=== PATIENT | male | born 1980 | race Caucasian/White ===

== ENCOUNTER 2016-09-01 19:42 | Inpatient (IN) | payer OTHER ==
[~2016-09-01] VITALS: Ht 170.2 cm; Wt 69.9 kg
[~2016-09-01 19:42] MED LIST: MYCO200S PO; PRED10PA PO; PROG1CAP PO; TRAM50 PO
[2016-09-01 19:51] VITALS: BP 113/79; PULSE 85; RESP 18; TEMP 98.7; O2SAT 100
[2016-09-01] MEDS ORDERED: SODIUM CHLOR 0.9% 1000 ML INJ 1,000 ML IV SCH (20:22)
--- NOTE | 2016-09-01 20:28 | PD ---
HPI Chief Complaint: GI Complaint Time Seen by Provider: 20:08 Travel History International Travel<30 days: No Contact w/Intl Traveler<30days: No Traveled to known affect area: No History of Present Illness HPI This 36-year-old male is complaining of dark stools. He has a history of ulcers. He does not drink. He says that he's been having dark stools for the last day or so. He's been feeling lightheaded he does not take anti- inflammatory medication. He does have a history of renal transplant 2. His most recent transplant was a few years ago and he says is working well. He is on antirejection medicines. He has a history of hernia repair and as noted that his hernia has recurred in the left inguinal area. He vomited once today. He says the vomit was dark PFSH Past Medical History Depression: Yes Diabetes: No Diminished Hearing: No Gout: Yes (BILATERAL KNEES) Herniated Disk: Yes (MULTIPLE) Hypertension: Yes Psychiatric: Yes (DEPRESSION ANXIETY) Renal Failure: Yes Past Surgical History Genitourinary Surgery: Yes ( kidney transplant) Social History Alcohol Use: No Tobacco Use: No Substance Use: No Allergies-Medications (Allergen,Severity, Reaction): Coded Allergies: No Known Allergies (Unverified , 09/01/16) Reported Meds & Prescriptions Reported Meds & Active Scripts Active Reported Metoprolol Tartrate 50 Mg Tab 50 Mg PO DAILY Prograf (Tacrolimus) 1 Mg Cap 1 Mg PO BID Prednisone 10 Mg Tab 10 Mg PO DAILY Cellcept (Mycophenolate Mofetil) 250 Mg Cap 250 Mg PO BID Review of Systems General / Constitutional: No: Fever, Chills Eyes: No: Diploplia, Blurred Vision HENT: No: Headaches, Vertigo Cardiovascular: No: Chest Pain or Discomfort, Palpitations Respiratory: No: Cough, Shortness of Breath Gastrointestinal: Positive: Hematemesis, Hematochezia Genitourinary: No: Frequency, Dysuria Musculoskeletal: No: Myalgias, Arthralgias Skin: No Rash, No Itching Neurologic: Positive: Weakness Psychiatric: Positive: Depression, No: Anxiety Hematologic/Lymphatic: No: Easy Bruising Physical Exam Narrative GENERAL well-developed male SKIN: Focused skin assessment warm/dry. HEAD: Atraumatic. Normocephalic. EYES: Pupils equal and round. No scleral icterus. No injection or drainage. ENT: No nasal bleeding or discharge. Mucous membranes pink and moist. NECK: Trachea midline. No JVD. CARDIOVASCULAR: Regular rate and rhythm. No murmur appreciated. RESPIRATORY: No accessory muscle use. Clear to auscultation. Breath sounds equal bilaterally. GASTROINTESTINAL: Abdomen soft, non-tender, nondistended. Hepatic and splenic margins not palpable. Multiple scars present. There are bilateral inguinal defects on rectal exam there are no masses. Stool is black and guaiac positive MUSCULOSKELETAL: No obvious deformities. No clubbing. No cyanosis. No edema. NEUROLOGICAL: Awake and alert. No obvious cranial nerve deficits. Motor grossly within normal limits. Normal speech. PSYCHIATRIC: Appropriate mood and affect; insight and judgment normal. Data Data Last Documented VS Vital Signs Date Time Temp Pulse Resp B/P Pulse Ox O2 Delivery O2 Flow Rate FiO2 09/01/16 21:20 82 16 113/67 98 Room Air 09/01/16 19:51 98.7 Orders Basic Metabolic Panel (Bmp) (09/01/16 20:22) Comprehensive Metabolic Panel (09/01/16 20:22) Prothrombin Time / Inr (Pt) (09/01/16 20:22) Act Partial Throm Time (Ptt) (09/01/16 20:22) Urinalysis - C+S If Indicated (09/01/16 20:22) Type And Screen (09/01/16 20:22) Ecg Monitoring (09/01/16 20:22) Iv Access Insert/Monitor (09/01/16 20:22) Oximetry (09/01/16 20:22) Sodium Chlor 0.9% 1000 Ml Inj (Ns 1000 M (09/01/16 20:22) Sodium Chloride 0.9% Flush (Ns Flush) (09/01/16 20:30) Pantoprazole Inj (Protonix Inj) (09/01/16 20:30) Pantoprazole Inj (Protonix Inj) (09/01/16 20:30) Complete Blood Count With Diff (09/01/16 20:51) Admit Order (Ed Use Only) (09/01/16 21:29) Labs Laboratory Tests Test 09/01/16 20:40 White Blood Count 9.9 TH/MM3 Red Blood Count 3.54 MIL/MM3 Hemoglobin 9.9 GM/DL Hematocrit 29.2 % Mean Corpuscular Volume 82.5 FL Mean Corpuscular Hemoglobin 28.0 PG Mean Corpuscular Hemoglobin 34.0 % Concent Red Cell Distribution Width 13.7 % Platelet Count 270 TH/MM3 Mean Platelet Volume 7.9 FL Neutrophils (%) (Auto) 64.0 % Lymphocytes (%) (Auto) 23.1 % Monocytes (%) (Auto) 4.8 % Eosinophils (%) (Auto) 7.3 % Basophils (%) (Auto) 0.8 % Neutrophils # (Auto) 6.3 TH/MM3 Lymphocytes # (Auto) 2.3 TH/MM3 Monocytes # (Auto) 0.5 TH/MM3 Eosinophils # (Auto) 0.7 TH/MM3 Basophils # (Auto) 0.1 TH/MM3 CBC Comment DIFF FINAL Differential Comment Prothrombin Time 10.8 SEC Prothromb Time International 1.0 RATIO Ratio Activated Partial 22.4 SEC Thromboplast Time Sodium Level 141 MEQ/L Potassium Level 3.3 MEQ/L Chloride Level 110 MEQ/L Carbon Dioxide Level 22.8 MEQ/L Anion Gap 8 MEQ/L Blood Urea Nitrogen 37 MG/DL Creatinine 1.30 MG/DL Estimat Glomerular Filtration 62 ML/MIN Rate Random Glucose 95 MG/DL Calcium Level 8.9 MG/DL Total Bilirubin 0.5 MG/DL Aspartate Amino Transf 12 U/L (AST/SGOT) Alanine Aminotransferase 14 U/L (ALT/SGPT) Alkaline Phosphatase 64 U/L Total Protein 6.4 GM/DL Albumin 3.5 GM/DL Blood Type O POSITIVE Antibody Screen NEGATIVE Blood Bank Comment [facility] Medical Decision Making Medical Screen Exam Complete: Yes Emergency Medical Condition: Yes Medical Record Reviewed: Yes Differential Diagnosis Differential includes GI bleed, Narrative Course Patient has black stool which is guaiac positive. He did vomit some coffee grounds earlier today. All consistent with an upper GI bleed. He says he does not drink or use anti-inflammatory medication that he does have history of ulcer. I have initiated Protonix Diagnosis Primary Impression: GI bleed Sánchez Arcos MD Sep 01, 2016 20:28
[2016-09-01] MEDS ORDERED: PANTOPRAZOLE INJ 80 MG in SODIUM CHLORIDE 0.9% INJ 35 ML IV ONE (20:30)
[2016-09-01] MEDS ORDERED: SODIUM CHLORIDE 0.9% FLUSH 10 ML FLUSH IVF PRN (20:30)
[2016-09-01 21:12] LABS: CHLORIDE 110 MEQ/L (98-107); POTASSIUM 3.3 MEQ/L (3.5-5.1); SODIUM (NA) 141 MEQ/L (136-145)
[2016-09-01 21:13] LABS: AUTOMATED NEUTROPHIL # 6.3 TH/MM3 (1.8-7.7); BASOPHIL # 0.1 TH/MM3 (0-0.2); BASOPHIL % 0.8 % (0.0-2.0); EOSINOPHIL # 0.7 TH/MM3 (0-0.4); EOSINOPHIL % 7.3 % (0.0-4.0); HEMATOCRIT 29.2 % (39.0-51.0); HEMO FLAGS DIFF FINAL; LYMPH % 23.1 % (9.0-44.0); LYMPHOCYTE # 2.3 TH/MM3 (1.0-4.8); MEAN CELL VOLUME 82.5 FL (80.0-100.0); MONO % 4.8 % (0.0-8.0); PLATELET COUNT 270 TH/MM3 (150-450); RED BLOOD COUNT 3.54 MIL/MM3 (4.50-5.90); RED CELL DISTRIBUTION WIDTH 13.7 % (11.6-17.2); WHITE BLOOD COUNT 9.9 TH/MM3 (4.0-11.0)
[2016-09-01 21:15] LABS: ANION GAP 8 MEQ/L (5-15); BICARBONATE 22.8 MEQ/L (21.0-32.0); BLOOD UREA NITROGEN 37 MG/DL (7-18)
[2016-09-01 21:17] LABS: APTT (PATIENT) 22.4 SEC (24.3-30.1); PROTHROMBIN TIME - PATIENT 10.8 SEC (9.8-11.6)
[2016-09-01 21:18] LABS: ALT (GPT) 14 U/L (12-78); AST (GOT) 12 U/L (15-37)
[2016-09-01 21:19] LABS: GLOMERULAR FILTRATION RATE 62 ML/MIN (>89)
[2016-09-01 21:20] VITALS: BP 113/67; PULSE 82; RESP 16; O2SAT 98
[2016-09-01 21:20] LABS: TOTAL BILIRUBIN ADULT 0.5 MG/DL (0.2-1.0)
[2016-09-01 21:21] LABS: ALKALINE PHOSPHATASE 64 U/L (45-117)
[2016-09-01] MEDS: PANTOPRAZOLE INJ 80 MG in SODIUM CHLORIDE 0.9% INJ 100 ML IV SCH (21:22)
[2016-09-01] MEDS ORDERED: METO50TA PO (21:41)
[2016-09-01] MEDS ORDERED: TACR1 PO (21:41)
[2016-09-01] MEDS ORDERED: MYCO250 PO (21:41)
[2016-09-01] MEDS ORDERED: PRED10 PO (21:41)
[2016-09-01 21:44] LABS: BLOOD, URINE NEG (NEG); GLUCOSE,URINE NEG (NEG); KETONE, URINE NEG (NEG); NITRITE,URINE NEG (NEG); PH, URINE 5.5 (5.0-8.5)
[2016-09-01] MEDS ORDERED: SODIUM CHLORIDE 0.9% FLUSH 10 ML FLUSH IV FLUSH PRN (21:45)
[2016-09-01 21:53] LABS: SQUAMOUS EPITHELIAL CELL URINE 0-5 /hpf (0-5); URINE COLOR YELLOW (YELLW/STRAW); WBC, URINE 0-2 /hpf (0-5)
[2016-09-01 21:54] LABS: COMMENT (UR) CULT NOT INDICATED; CULTURE IF INDICATED CULT NOT INDICATED
[2016-09-01 22:20] VITALS: BP 112/72; PULSE 70; RESP 16; O2SAT 98
[2016-09-01] MEDS: TACROLIMUS 1 MG CAP PO SCH (22:40)
[2016-09-01] MEDS ORDERED: MYCOPHENOLATE MOFETIL 250 MG CAP PO ONE (23:15)
[2016-09-01 23:30] VITALS: BP 118/76; PULSE 85; RESP 20; TEMP 97.9; O2SAT 100
[2016-09-01 23:38] VITALS: BP 106/69
[2016-09-02 00:11] VITALS: PULSE 80
[2016-09-02 02:46] LABS: HEMATOCRIT 24.3 % (39.0-51.0); REVIEW FLAG FINAL
[2016-09-02 04:00] VITALS: BP 105/66; PULSE 81; RESP 20; TEMP 98.1; O2SAT 98
[2016-09-02] MEDS: PANTOPRAZOLE INJ 80 MG in SODIUM CHLORIDE 0.9% INJ 100 ML IV SCH (06:30)
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
[2016-09-02] MEDS ORDERED: PROPOFOL 200 MG/20 ML AMP IV ONE (08:21)
--- NOTE | 2016-09-02 08:28 | GIPROC ---
[facility] [address] [place] [address], [id number] EGD PROCEDURE REPORT EXAM DATE: 09/02/2016 PATIENT NAME: Nathen Cason MR #: [id number] BIRTHDATE: 1980 ATTENDING: Anitra Alvarado MD ORDER #: [id number] DIRECTOR OF STRATEGY & MOBILE: Philip Palm and Angel Figueroa STATUS: inpatient INDICATIONS: The patient is a 36 yr old male here for an EGD due to melena, hematemesis PROCEDURE PERFORMED: EGD w/ biopsy MEDICATIONS: None and Per Anesthesia. TOPICAL ANESTHETIC: none CONSENT: The patient understands the risks and benefits of the procedure and understands that these risks include, but are not limited to: sedation, allergic reaction, infection, perforation and/or bleeding. Alternative means of evaluation and treatment include, among others: physical exam, x-rays, and/or surgical intervention. The patient elects to proceed with this endoscopic procedure. medical equipment was checked for proper function. Hand hygiene and appropriate measures for infection prevention was taken. After the risks, benefits and alternatives of the procedure were thoroughly explained, Informed consent was verified, confirmed and timeout was successfully executed by the treatment team. The patient was anesthetized with topical anesthesia and the [employer] [id number] endoscope was introduced through the mouth and advanced to the second portion of the duodenum. Retroflexed views revealed a hiatal hernia The gastroscope was then slowly withdrawn and removed. Clean base ulcer in antrum-6 mm-no active bleeding-biopsy duodenal bulb ulcer-clean base 6 mm-no active bleeding, narrowing lumen Schatzki's ring-biopsy. ADVERSE EVENTS: There were no complications. IMPRESSIONS: 1. Clean base ulcer in antrum-6 mm-no active bleeding-biopsy duodenal bulb ulcer-clean base 6 mm-no active bleeding, narrowing lumen Schatzki's ring-biopsy 2. Retroflexed views revealed a hiatal hernia RECOMMENDATIONS: 1. Await biopsy results. Biopsy results will not be ready for 7-10 days. If you don't hear from us in two weeks, call our office for biopsy results. 2. Anti-reflux regimen 3. Continue PPI 4. Avoid nsaids ct abdomen/pelvis -no iv contrast -pain in llq/hernia egd 8 weeks PATIENT CONDITION: stable DISPOSITION: Inpatient REPEAT EXAM: EGD pending biopsy results Anitra Alvarado MD eSigned: Anitra Alvarado MD 09/02/2016 8:28 AM cc: PATIENT NAME: Nathen Cason MR#: [id number]
[2016-09-02] MEDS ORDERED: ONDANSETRON HCL 4 MG/2 ML VIAL ONE (08:37)
[2016-09-02 09:00] VITALS: BP 125/77; PULSE 81; RESP 19; TEMP 97.4; O2SAT 100
[2016-09-02] MEDS ORDERED: SODIUM CHLORIDE 0.9% FLUSH 10 ML FLUSH IV FLUSH SCH (09:00)
[2016-09-02] MEDS ORDERED: DIATRIZOATE MEGLUM/DIATRIZOATE SOD 9 ML CUP PO ONE (09:00)
[2016-09-02] MEDS ORDERED: predniSONE 10 MG TAB PO SCH (09:00)
[2016-09-02] MEDS ORDERED: MYCOPHENOLATE MOFETIL 250 MG CAP PO SCH (09:00)
[2016-09-02] MEDS: TACROLIMUS 1 MG CAP PO SCH (09:29)
[2016-09-02 10:13] LABS: HEMATOCRIT 25.4 % (39.0-51.0); REVIEW FLAG FINAL
[2016-09-02 10:27] LABS: POTASSIUM 3.6 MEQ/L (3.5-5.1)
[2016-09-02 10:30] LABS: BICARBONATE 22.7 MEQ/L (21.0-32.0); MAGNESIUM 1.9 MG/DL (1.5-2.5)
--- NOTE | 2016-09-02 12:07 | RADRPT ---
EXAM DATE/TIME: 09/02/2016 11:28 [facility] COMPARISON: No previous studies available for comparison. INDICATIONS : Left lower quadrant pain. ORAL CONTRAST: Prescribed oral contrast ingested. RADIATION DOSE: 8.03 CTDIvol (mGy) MEDICAL HISTORY : Hypertension. Renal disease. SURGICAL HISTORY : Cholecystectomy. Bilateral renal transplant. Left inguinal hernia repair. ENCOUNTER: Initial ACUITY: 2 weeks PAIN SCALE: 4/10 LOCATION: Left lower quadrant TECHNIQUE: Volumetric scanning of the abdomen and pelvis was performed. Using automated exposure control and ad justment of the mA and/or kV according to patient size, radiation dose was kept as low as reasonably achievable to obtain optimal diagnostic quality images. DICOM format image data is available electro nically for review and comparison. FINDINGS: CT Abdomen: The [place] kidneys are shrunken bilaterally and there are cystic changes in the left kidn ey part of which may be pelvocaliectasis and part of it may be dysplastic cysts the largest measures 6.3 cm in size. Renal transplant is present in the left lower quadrant. The liver, spleen, pancreas, adrenals are unremarkable. There is no evidence for any appreciable pathological adenopathy, free flu id, or bowel obstruction. 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 CT pelvis: There is no evidence for abscess formation, or any significant adenopathy within the pelvi s. The prostate gland is inhomogeneous and measures 2.6 x 4.3 cm in AP and transverse diameters and n onspecific. Approximate 4 cm density is present in the right lower quadrant in the paracolic gutter w ith calcifications probably postsurgical change and/or post traumatic changes. It has the appearance of scar. The appendix appears intact without definite signs of appendicitis. CONCLUSION: 1. Chronically shrunken kidneys probable dysplastic cysts and/or pelvocaliectasis the left kidney chr onic in nature as well. 2. Benign-appearing soft tissue mass with calcifications in the paracolic gutter on the right side of uncertain etiology possibly due to old trauma. Follow up is suggested with noncontrast CT abdomen an d pelvis in 6 months. Maria Elena Shepard MD on September 02, 2016 at 11:58 Board Certified Radiologist. This report was verified electronically.
[2016-09-02 12:45] VITALS: BP 120/75; PULSE 83; RESP 19; TEMP 97.4; O2SAT 99
[2016-09-02] MEDS ORDERED: ONDANSETRON HCL 4 MG/2 ML VIAL IV PUSH PRN (14:00)
[2016-09-02 15:23] LABS: HEMATOCRIT 25.2 % (39.0-51.0); REVIEW FLAG FINAL
[2016-09-02] MEDS ORDERED: FERR324T4 PO (16:07)
[2016-09-02] MEDS ORDERED: PROT40TA PO (16:07)
--- NOTE | 2016-09-02 16:07 | HHI.DCPOC ---
Discharge Care Plan Diagnosis: (1) GI bleed (2) Acute blood loss anemia Goals to Promote Your Health * To prevent worsening of your condition and complications * To maintain your health at the optimal level Directions to Meet Your Goals Take your medications as prescribed Follow your dietary instruction Follow activity as directed Keep your appointments as scheduled Take your immunizations and boosters as scheduled If your symptoms worsen call your PCP, if no PCP go to Urgent Care Center or Emergency Room Smoking is Dangerous to Your Health. Avoid second hand smoke Call the 24-hour hour crisis hotline for domestic abuse at Alonso Mason Sep 02, 2016 16:07
--- NOTE | 2016-09-02 21:58 | MB ---
cc: FINESSE SUTTON M.D. DATE OF CONSULTATION 09/02/[address] Mi. The patient is seen early in the morning. Procedure performed. PROCEDURE PERFORMED Mr. Cason is a 36-year-old gentleman with a history of peptic ulcer disease, gout, renal failure status post transplant x2, hypertension came to the hospital with complaints of dark tarry stool. The patient also had some coffee-ground emesis. He also complained of some lightheadedness. Denies any chest pain, shortness of breath, dysphagia, odynophagia, weight loss. His last exam and colonoscopy and endoscopy was many years ago, approximately 10 years ago. He is complaining of some pain in the left lower quadrant. He stated that he has a mesh and the mesh on the recall list and he thinks his symptoms are related to that. He denies any drug use, NSAID use. PAST MEDICAL HISTORY 1. High blood pressure. 2. Gout. 3. Anxiety. 4. Depression. 5. End-stage renal disease, status post bilateral renal transplant. PAST SURGICAL HISTORY 1. Cholecystectomy. 2. Inguinal hernia repair. 3. Left knee surgery. 4. Left hand surgery. 5. Renal transplant. MEDICATIONS AT HOME 1. Metoprolol. 2. Prograf. 3. Prednisone. 4. CellCept. ALLERGIES No known allergies. FAMILY HISTORY Denies any family history of colon cancer or any other GI pathology. He denies any drug use. PHYSICAL EXAMINATION GENERAL: On clinical exam the patient is sitting comfortably in bed in no acute distress. VITAL SIGNS: His temperature is 98.1, pulse 81, respiratory rate 20, blood pressure 105/66. Saturation 98%. HEENT: Pupils equal, round, reactive to light and accommodation. NECK: No JVD. No lymphadenopathy. CHEST: Clear to auscultation and percussion. CARDIOVASCULAR: S1-S2. No murmur. ABDOMEN: Soft. Tender in the left lower quadrant. CENTRAL NERVOUS SYSTEM: Awake, alert. Oriented times three. No focal signs identified. LABORATORY DATA His hemoglobin on admission was 9.9, currently 8.4. White count 9.9. PT/INR normal. His chemistry suggestive of BUN of 37, creatinine 1.3. Normal LFTs. IMPRESSION Mr. Cason is a 36-year-old gentleman admitted with GI bleed, hemodynamically stable at this time, history of peptic ulcer disease, possible recurrent peptic ulcer disease. RECOMMENDATIONS Upper endoscopy will be scheduled today. The risks, benefits were discussed with the patient. Continue PPI. Avoid NSAID. Further recommendations will depend on the patient's clinical status and the above results. Thank you again. We will continue to follow the patient along with you. MD FILIPPO Jimenez/JOAN /6:11 PM /9:44 PM
== END 2016-09-02 17:22 | disposition home or self-care (01) | DRG 384 ==
LOC: PHED 19:42 → PHEDA 21:32 → PH3A 23:28
PROVIDERS: ADMIT Hospitalist; ATTEND Hospitalist
PROC: 0DB68ZX Excision of Stomach, Via Natural or Artificial Opening Endoscopic, Diagnostic (ICD-10-PCS; 2016-09-02)
PROC: 0DB38ZX Excision of Lower Esophagus, Via Natural or Artificial Opening Endoscopic, Diagnostic (ICD-10-PCS; 2016-09-02)
PROC: 0DB98ZX Excision of Duodenum, Via Natural or Artificial Opening Endoscopic, Diagnostic (ICD-10-PCS; principal; 2016-09-02 08:15)
DX: K25.9 Gastric ulcer, unspecified as acute or chronic, without hemorrhage or perforation (principal); K26.9 Duodenal ulcer, unspecified as acute or chronic, without hemorrhage or perforation; K92.2 Gastrointestinal hemorrhage, unspecified; D62 Acute posthemorrhagic anemia; I10 Essential (primary) hypertension; Z94.0 Kidney transplant status; M10.9 Gout, unspecified; Z87.11 Personal history of peptic ulcer disease; Z79.52 Long term (current) use of systemic steroids; K44.9 Diaphragmatic hernia without obstruction or gangrene; K22.2 Esophageal obstruction
CPT/HCPCS: 74176; 80048; 80053; 81001; 83735; 85014; 85018; 85025; 85610; 85730; 86850; 86900; 86901; 88305; 96374; C9113; J2405; J7030; J7507; J7512; J7517; Q9963